=== PATIENT | female | born 1970 | race Caucasian/White ===

== ENCOUNTER 2017-11-28 06:43 | Emergency (ER) | payer MEDICAID ==
[~2017-11-28] VITALS: Ht 149.9 cm; Wt 106.1 kg
[2017-11-28 06:46] VITALS: BP 140/95
--- NOTE | 2017-11-28 06:55 | NUR ---
Patient ambulated to bed 7. RN evaluating patient at bedside.
[2017-11-28] MEDS ORDERED: NACL 0.9% 1,000 ML IV SCH (07:42)
[2017-11-28] MEDS ORDERED: PROMETHAZINE 25 MG/ML VIAL IM ONE (07:45)
[2017-11-28] MEDS ORDERED: HYDROmorphone PFS 2 MG/ML SYR IVP ONE (07:45)
--- NOTE | 2017-11-28 08:00 | NUR ---
47 yo f bib self w/ c/o right flank pain radiating to RUQ and c/o bloating to abdomen x1 week; pt also c/o dysuria, states she has pain initiating a stream. AAOx4, gcs 15, cms intact. rr even and unlabored, lungs bl clear. abd soft, flanks tender to the touch. bowel sounds active x 4 quads. skin pink, warm w/ diaphoresis to the forehead. pain 10/10. denies n/v/d/fever. ambulatory w/ steady gait. er md notified. pt needs met. safety precautions in place. will continue to monitor.
--- NOTE | 2017-11-28 08:15 | NUR ---
pt taken to XRAY via w/c.
[2017-11-28 08:22] LABS: BASOPHILS % (AUTO) 0.5 % (0.0-2.0); EOSINOPHILS # (AUTO) 0.1 K/uL (0-0.4); EOSINOPHILS % (AUTO) 1.8 % (0.0-4.0); HEMATOCRIT 43.7 % (36-48); HEMOGLOBIN 14.5 g/dL (12.0-16.0); LYMPHOCYTES # (AUTO) 2.4 K/uL (2.5-16.5); LYMPHOCYTES % (AUTO) 29.8 % (20.5-51.1); MEAN CORPUSCULAR HEMOGLOBIN 30 pg (27-31); MEAN CORPUSCULAR HGB CONC 33 g/dL (33-37); MONOCYTES # (AUTO) 0.6 K/uL (0.8-1.0); MONOCYTES % (AUTO) 7.3 % (1.7-9.3); NEUTROPHILS # (AUTO) 4.8 K/uL (1.8-7.7); NEUTROPHILS % (AUTO) 60.6 % (42.2-75.2); PLATELET COUNT (AUTO) 152 K/uL (140-450); RED BLOOD CELL COUNT(AUTO) 4.91 MIL/uL (4.20-5.40); RED CELL DISTRIBUTION WIDTH 14.3 % (11.6-13.7)
[2017-11-28 08:37] LABS: PROTHROMBIN TIME 8.7 secs (10.8-13.4)
[2017-11-28 08:41] LABS: ANION GAP 6.6 (8-16); CARBON DIOXIDE 34.3 mmol/L (21-32); CREATININE 0.5 mg/dL (0.6-1.3); POTASSIUM 3.9 mmol/L (3.5-5.1)
[2017-11-28 08:42] LABS: AMYLASE 52 U/L (25-115); LIPASE 248 U/L (73-393)
[2017-11-28 08:47] LABS: ALBUMIN 3.5 g/dL (3.4-5.0); TOTAL BILIRUBIN 0.6 mg/dL (0.0-1.0)
--- NOTE | 2017-11-28 09:20 | NUR ---
pt resting comfortably in [facility] at this time w/ vss, rr even and unlabored. safety precautions in place. will continue to monitor.
[2017-11-28 09:29] LABS: APPEARANCE,URINE CLEAR (CLEAR); BILIRUBIN,URINE NEGATIVE (NEGATIVE); BLOOD, URINE TRACE-I (NEGATIVE); COLOR,URINE YELLOW (YELLOW); LEUKOCYTE ESTERASE ,URINE NEGATIVE (NEGATIVE); NITRITE, URINE NEGATIVE (NEGATIVE); UGLUCOSE NEGATIVE (NEGATIVE)
[2017-11-28 09:36] LABS: WBC,URINE 0-5 (RARE) /HPF (0-5)
[2017-11-28 09:37] LABS: RBC,URINE 3-10 (FEW) /HPF (0-5)
--- NOTE | 2017-11-28 10:16 | NUR ---
pt continues to rest comfortably in [facility] at this time w/ vss, rr even and unlabored. safety precautions in place. will continue to monitor.
[2017-11-28] MEDS ORDERED: LACTULOSE 20 GM/30 ML UDC PO ONE (11:05)
[2017-11-28 11:50] VITALS: BP 139/87
--- NOTE | 2017-11-28 11:50 | NUR ---
Patient discharged with v/s stable. Written and verbal after care instructions given and explained. Patient alert, oriented and verbalized understanding of instructions. Ambulatory with steady gait. All questions addressed prior to discharge. ID band removed. Patient advised to follow up with PMD. Rx of Reglan given. Patient educated on indication of medication including possible reaction and side effects. Opportunity to ask questions provided and answered.
== END 2017-11-28 11:50 | disposition home or self-care (01) ==
LOC: MED 06:43
DX: K31.84 Gastroparesis (principal); K59.00 Constipation, unspecified; I10 Essential (primary) hypertension; Z90.49 Acquired absence of other specified parts of digestive tract; Z88.6 Allergy status to analgesic agent
CPT/HCPCS: 36415; 74176; 80053; 81001; 81025; 82150; 83690; 83880; 84484; 84550; 84703; 85025; 85379; 85610; 85730; 96372; 96374; 99285; J1170; J2550; J7030

== ENCOUNTER 2019-02-07 15:47 | Emergency (ER) | payer SELFPAY ==
[~2019-02-07] VITALS: Ht 160 cm; Wt 104.3 kg
[2019-02-07 16:07] VITALS: BP 148/90
--- NOTE | 2019-02-07 16:13 | NUR ---
influenza swab collected
--- NOTE | 2019-02-07 16:51 | NUR ---
PT AMBULATED TO ER CHAIR D
--- NOTE | 2019-02-07 17:08 | NUR ---
PT TO ED WITH C/O GENERALIZED BODY ACHES, COUGH, AND FEVER LASTING 3 DAYS. LUNG SOUNDS CLEAR BILATERALLY. NO DISTRESS NOTED. NO SOB. IN CHAIR FOR EVAL.
--- NOTE | 2019-02-07 17:23 | NUR ---
Patient discharged with v/s stable. Written and verbal after care instructions given and explained. Patient alert, oriented and verbalized understanding of instructions. Ambulatory with steady gait. All questions addressed prior to discharge. ID band removed. Patient advised to follow up with PMD. Rx of TYLENOL, TAMIFLU, PROMETHAZINE given. Patient educated on indication of medication including possible reaction and side effects. Opportunity to ask questions provided and answered.
[2019-02-07 17:24] VITALS: BP 138/81
== END 2019-02-07 17:23 | disposition home or self-care (01) ==
LOC: MED 15:47
DX: J10.1 Influenza due to other identified influenza virus with other respiratory manifestations (principal); I10 Essential (primary) hypertension; Z88.8 Allergy status to other drugs, medicaments and biological substances; Z90.49 Acquired absence of other specified parts of digestive tract; Z98.890 Other specified postprocedural states
CPT/HCPCS: 87804; 99283